=== PATIENT | male | born 1980 | race Caucasian/White ===

== ENCOUNTER 2017-01-10 20:09 | Emergency (ER) | payer OTHER ==
[2017-01-10 20:32] VITALS: BP 146/76; BMI 29.2
[2017-01-10] MEDS ORDERED: KETOROLAC TROMETHAMINE 60 MG/2 ML VIAL IM ONE (21:30)
[2017-01-10] MEDS ORDERED: KETOROLAC TROMETHAMINE 60 MG/2 ML VIAL ONE (21:35)
[2017-01-10] MEDS ORDERED: AMOXICILLIN 500 MG CAPSULE (FP) PO ONE (21:37)
--- NOTE | 2017-01-10 21:37 | PDOC ---
History of Present Illness - General Chief Complaint: Toothache Stated Complaint: PAIN, ACUTE Time Seen by Provider: 01/10/17 21:23 History Source: Patient Exam Limitations: No Limitations - History of Present Illness Initial Comments: 01/10/17 21:31 CC sevre right upper gumline pain x 3 days; no trauma Timing/Duration: getting worse Severity: severe Associated Symptoms: reports: malaise. denies: chest pain, cough, fever/chills Past History - Past Medical History Allergies/Adverse Reactions: Allergies Allergy/AdvReac Type Severity Reaction Status Date / Time No Known Allergies Allergy Verified 01/10/17 20:33 Home Medications: Ambulatory Orders Pregabalin [Lyrica -] 150 mg PO TID 09/21/14 Duloxetine HCl [Cymbalta] 30 mg PO DAILY 01/10/17 Duloxetine HCl [Cymbalta] 60 mg PO DAILY 01/10/17 Anemia: No Asthma: No Cancer: No Cardiac Disorders: No CVA: No COPD: No CHF: No Dementia: No Diabetes: No GI Disorders: No Disorders: No HTN: No Hypercholesterolemia: No Kidney Stones: No Liver Disease: No Suicide Attempt (Hx): No Seizures: No Thyroid Disease: No - Surgical History Neurologic Surgery: Yes (LAMINECTOMY L4-S1 WITH FUSION) - Reproductive History Testicular Surgery: No - Psycho/Social/Smoking Cessation Hx Anxiety: No Suicidal Ideation: No Smoking History: Current every day smoker Number of Cigarettes Smoked Daily: 10 Information on smoking cessation initiated: No 'Breaking Loose' booklet given: 02/03/14 Hx Alcohol Use: No Drug/Substance Use Hx: No Substance Use Type: Prescribed Hx Substance Use Treatment: Yes (detox, rehab, mmtp, 12 step ) Review of Systems - Review of Systems Constitutional: No: Symptoms Reported, Chills, Fever, Malaise HEENTM: Yes: Mouth Pain, Dental Problems Respiratory: No: Cough Cardiac (ROS): No: Symptoms Reported *Physical Exam - Vital Signs Last Vital Signs Temp Pulse Resp BP Pulse Ox 146/76 99 01/10/17 20:29 01/10/17 20:29 - Physical Exam General Appearance: Yes: Appropriately Dressed. No: Apparent Distress HEENT: positive: TMs Normal, Pharynx Normal, Other (tender to base #10, with STS to area) Neck: positive: Supple. negative: Tender, Rigid, Lymphadenopathy (R), Lymphadenopathy (L) Respiratory/Chest: positive: Lungs Clear Medical Decision Making - Medical Decision Making 01/10/17 21:33 Toradol in Ed; amox started; suggested seeing dentist clinic at [facility] in am at *DC/Admit/Observation/Transfer Diagnosis at time of Disposition: Dental abscess - Discharge Dispostion Disposition: HOME Condition at time of disposition: Stable Admit: No - Patient Instructions Additional Instructions: please see dentist in dental clinic at [facility] in am; start abx today; start percocet only if pain no better
[2017-01-10] MEDS ORDERED: AMOXICILLIN 250 MG CAPSULE ONE (21:42)
== END 2017-01-10 21:43 | disposition home or self-care (01) ==
LOC: JERFT 20:09
PROC: 3E0233Z Introduction of Anti-inflammatory into Muscle, Percutaneous Approach (ICD-10-PCS; principal; 2017-01-10)
DX: K04.7 Periapical abscess without sinus (principal); F17.210 Nicotine dependence, cigarettes, uncomplicated
CPT/HCPCS: 96372; 99281-25